=== PATIENT | female | born 1965 | race Caucasian/White ===

== ENCOUNTER 2018-06-19 17:42 | Emergency (ER) | payer BC ==
[~2018-06-19] VITALS: Ht 154.9 cm; Wt 62.1 kg
--- NOTE | 2018-06-19 17:49 | ED.ADGEN ---
Past History Past Medical History: Other Smoking: Cigarettes Adult General Chief Complaint Chief Complaint "... I was pushing a cart yesterday.... about 3:30 to 4:30.. at [facility]... it does not turn well....and while I was attempting to turn it... I felt a really sharp pain.. here in my Rt chest wall .. and both my shoulders hurt.. more here in the right...but the pain has not gotten better.. and now it really bad shoulder pain and in my Rt. chest area... its no better today and seems to getting worse... I tried to push the cart... today.. and I could nt. ." HPI HPI Patient is a 52 year old female who presents with above hx and complaints of of right shoulder pain with Rt. chest wall pain . Patient localizes pain under right shoulder and along the anterior axillary line approximately T6. Pain is reproduced with movement. Pain is reproducible cough and deep breaths. Pain to be localized to one or 2 cm area along the anterior axillary line. Anterior to posterior pressure on chest wall exacerbates pain and localizes to the anterior axillary line. Patient denies any other injury. Patient normally healthy. Patient does not follow-up primary care. Patient does smoke. Patient denies any history of cardiac disease or DVTs or blood clots. Patient denies any history of immunosuppression. Patient rates her pain 9 out of 10 if she attempts to push a cart and with anterior to posterior chest wall pressure. If not moving the pain is minimal. Review of Systems Review of Systems Constitutional: Denies fever or chills [] Eyes: Denies change in visual acuity, redness, or eye pain [] HENT: Denies nasal congestion or sore throat [] Respiratory: Denies cough or shortness of breath []complaints of localized chest wall pain Cardiovascular: No additional information not addressed in HPI [] GI: Denies abdominal pain, nausea, vomiting, bloody stools or diarrhea [] : Denies dysuria or hematuria [] Musculoskeletal: Denies back pain or joint pain []except as per history of present illness Integument: Denies rash or skin lesions [] Neurologic: Denies headache, focal weakness or sensory changes [] Endocrine: Denies polyuria or polydipsia [] All other systems were reviewed and found to be within normal limits, except as documented in this note. Family History Family History Noncontributory Current Medications Current Medications Current Medications Medications (Trade) Dose Ordered Sig/Tara Start Time Stop Time Status Last Admin Dose Admin Ketorolac Tromethamine (Toradol) 30 mg 1X ONCE 06/19/18 19:15 06/19/18 19:16 DC 06/19/18 19:20 30 MG Lactated Ringer's 1,000 ml @ 1,000 mls/hr Q1H 06/19/18 18:02 06/19/18 19:01 DC 06/19/18 18:15 1,000 MLS/HR Oxycodone/ Acetaminophen (Percocet 5/325) 2 tab 1X ONCE 06/19/18 19:15 06/19/18 19:16 DC 06/19/18 19:20 2 TAB Allergies Allergies Allergies Coded Allergies Type Severity Reaction Last Updated Verified No Known Drug Allergies 06/19/18 No Physical Exam Physical Exam Constitutional: Moderately acute distress, non-toxic appearance. [] HENT: Normocephalic, atraumatic, bilateral external ears normal, oropharynx moist, no oral exudates, nose normal. [] Eyes: PERRLA, EOMI, conjunctiva normal, no discharge. [] Glasses Neck: Normal range of motion, no tenderness, supple, no stridor. [] Cardiovascular:Heart rate regular rhythm, no murmur [] Lungs & Thorax: Bilateral breath sounds equal at apexes with scattered wheezes auscultation. Patient has [point tenderness right chest wall and under right arm as per history of present illness Abdomen: Bowel sounds normal, soft, no tenderness, no masses, no pulsatile masses. Old surgery scar Skin: Warm, dry, no erythema, no rash. [] Back: No tenderness, no CVA tenderness. [] Extremities: No tenderness, no cyanosis, no clubbing, ROM intact, right ankle edema. [] Except as noted in history of present illness. No cording in legs. Does have tenderness right chest wall and discomfort in both shoulders when she moves arms and wind mill rotation. Distal neurovascular intact. Neurologic: Alert and oriented X 3, normal motor function, normal sensory function, no focal deficits noted. [] Psychologic: Affect anxious, judgement normal, mood normal. [] Current Patient Data Vital Signs Vital Signs Date Time Temp Pulse Resp B/P (MAP) Pulse Ox O2 Delivery O2 Flow Rate FiO2 06/19/18 19:40 82 18 145/84 (104) 96 Room Air 06/19/18 17:54 98.6 Lab Results Laboratory Tests Test 06/19/18 18:00 06/19/18 18:43 White Blood Count 8.5 x10^3/uL (4.0-11.0) Red Blood Count 4.94 x10^6/uL (3.50-5.40) Hemoglobin 15.0 g/dL (12.0-15.5) Hematocrit 44.0 % (36.0-47.0) Mean Corpuscular Volume 89 fL (79-100) Mean Corpuscular Hemoglobin 30 pg (25-35) Mean Corpuscular Hemoglobin Concent 34 g/dL (31-37) Red Cell Distribution Width 14.4 % (11.5-14.5) Platelet Count 450 x10^3/uL (140-400) H Neutrophils (%) (Auto) 50 % (31-73) Lymphocytes (%) (Auto) 39 % (24-48) Monocytes (%) (Auto) 8 % (0-9) Eosinophils (%) (Auto) 1 % (0-3) Basophils (%) (Auto) 2 % (0-3) Neutrophils # (Auto) 4.3 x10^3uL (1.8-7.7) Lymphocytes # (Auto) 3.3 x10^3/uL (1.0-4.8) Monocytes # (Auto) 0.7 x10^3/uL (0.0-1.1) Eosinophils # (Auto) 0.1 x10^3/uL (0.0-0.7) Basophils # (Auto) 0.1 x10^3/uL (0.0-0.2) Sodium Level 139 mmol/L (136-145) Potassium Level 3.8 mmol/L (3.5-5.1) Chloride Level 103 mmol/L (98-107) Carbon Dioxide Level 27 mmol/L (21-32) Anion Gap 9 (6-14) Blood Urea Nitrogen 9 mg/dL (7-20) Creatinine 0.7 mg/dL (0.6-1.0) Estimated GFR (Cockcroft-Gault) 87.5 Glucose Level 90 mg/dL (70-99) Calcium Level 9.2 mg/dL (8.5-10.1) Magnesium Level 2.1 mg/dL (1.8-2.4) Total Bilirubin 0.3 mg/dL (0.2-1.0) Direct Bilirubin 0.1 mg/dL (0.0-0.2) Aspartate Amino Transferase (AST) 15 U/L (15-37) Alanine Aminotransferase (ALT) 19 U/L (14-59) Alkaline Phosphatase 86 U/L (46-116) Creatine Kinase 70 U/L (26-192) Creatine Kinase MB (Mass) 0.7 ng/mL (0.0-3.6) Creatine Kinase MB Relative Index 1.0 % (0-4) Troponin I Quantitative < 0.017 ng/mL (0-0.055) GB-Atd-J-Type Natriuretic Peptide 157 pg/mL (0-124) H Total Protein 7.7 g/dL (6.4-8.2) Albumin 3.4 g/dL (3.4-5.0) Lipase 74 U/L (73-393) Urine Opiates Screen Neg (NEG) Urine Methadone Screen Neg (NEG) Urine Barbiturates Neg (NEG) Urine Phencyclidine Screen Neg (NEG) Urine Amphetamine/Methamphetamine Neg (NEG) Urine Benzodiazepines Screen Neg (NEG) Urine Cocaine Screen Neg (NEG) Urine Cannabinoids Screen Neg (NEG) Urine Ethyl Alcohol Neg (NEG) EKG EKG My interpretation of EKG shows a sinus rhythm at 90 bpm. No acute morphology[] Radiology/Procedures Radiology/Procedures My interpretation of chest x-ray, shoulders- shows no acute cardiopulmonary findings. Does have some atelectasis. Normal cardiac border. Does have clips in right upper abdomen area. Does have increased stool. Does have some mild degenerative changes of spine and shoulders[]. Course & Med Decision Making Course & Med Decision Making Pertinent Labs and Imaging studies reviewed. (See chart for details) Ice packs when necessary. Continue take deep breaths. Do not splint chest wall [place] wrap. Take Tylenol and ibuprofen for pain. For marked pain may take Vicoprofen. No work until follow-up work comp or released by primary care. See work comp has noticed possible. Return if any concerns. Patient encouraged to stop smoking. Patient did take a daily aspirin. Return if any concerns. [] Final Impression Final Impression 1. Rt. shoulder pain 2. Chest Pain- Rt chest wall pain 3. Tobacco Use[] 4. History of prior right ankle injury-on light duty Dragon Disclaimer Dragon Disclaimer This electronic medical record was generated, in whole or in part, using a voice recognition dictation system. KEVIN SANTANA MD Jun 19, 2018 17:49
[2018-06-19] MEDS ORDERED: IV RINGERS SOLUTION,LACTATED 1,000 ML IV SCH (18:02)
[2018-06-19 18:40] LABS: BASO # 0.1 x10^3/uL (0.0-0.2); BASO % 2 % (0-3); EOS # 0.1 x10^3/uL (0.0-0.7); EOS % 1 % (0-3); LYMPH # 3.3 x10^3/uL (1.0-4.8); LYMPH % 39 % (24-48); MEAN CORPUSCULAR HEMOGLOBIN 30 pg (25-35); MEAN CORPUSCULAR HGB CONC 34 g/dL (31-37); MEAN CORPUSCULAR VOLUME 89 fL (79-100); MONO # 0.7 x10^3/uL (0.0-1.1); MONO % 8 % (0-9); NEUT # 4.3 x10^3uL (1.8-7.7); NEUT % 50 % (31-73); PLATELET COUNT 450 x10^3/uL (140-400); RED BLOOD COUNT 4.94 x10^6/uL (3.50-5.40); RED CELL DISTRIBUTION WIDTH 14.4 % (11.5-14.5); WHITE BLOOD COUNT 8.5 x10^3/uL (4.0-11.0)
[2018-06-19] MEDS ORDERED: KETOROLAC 30 MG/ML VIAL. IV ONE (19:15)
[2018-06-19] MEDS ORDERED: oxyCODONE/APAP 5/325 1 TAB TABLET PO ONE (19:15)
[2018-06-19 19:22] LABS: ALBUMIN 3.4 g/dL (3.4-5.0); CALCIUM 9.2 mg/dL (8.5-10.1); CREATININE 0.7 mg/dL (0.6-1.0); DIRECT BILIRUBIN 0.1 mg/dL (0.0-0.2); GFR 87.5; MAGNESIUM 2.1 mg/dL (1.8-2.4); POTASSIUM 3.8 mmol/L (3.5-5.1); TOTAL BILIRUBIN 0.3 mg/dL (0.2-1.0); TOTAL PROTEIN 7.7 g/dL (6.4-8.2)
[2018-06-19 19:34] LABS: AMPHETAMINE/METHAMPHETAMINE NEG (NEG); BARBITURATES NEG (NEG); BENZODIAZEPINES NEG (NEG); CANNABINOIDS NEG (NEG); COCAINE NEG (NEG); METHADONE NEG (NEG); OPIATES NEG (NEG); PHENCYCLIDINE NEG (NEG)
[2018-06-19] MEDS ORDERED: HYDR-79 PO (19:36)
[2018-06-19 19:40] VITALS: BP 145/84
[2018-06-19 19:54] LABS: BILIRUBIN,URINE NEG (NEG); CLARITY,URINE HAZY; COLOR,URINE STRAW; GLUCOSE,URINE NEG (NEG)
[2018-06-19 19:55] LABS: BACTERIA,URINE FEW /HPF (0-FEW); NITRITE,URINE NEG (NEG); RBC,URINE OCC /HPF (0-2); SQUAMOUS EPITHELIAL CELL,UR MANY /LPF; UROBILINOGEN,URINE 0.2 mg/dL (0.2 mg/dL)
--- NOTE | 2018-06-20 09:01 | RAD ---
EXAM: Bilateral shoulders, 6 views. HISTORY: Pain. COMPARISON: None. FINDINGS: 3 views of both shoulders are obtained. There is no fracture, dislocation or subluxation. The acromioclavicular and glenohumeral joint spaces are intact. IMPRESSION: No acute osseous finding. Electronically signed by: Mary Rivas MD (06/20/2018 8:58 AM) [facility]
--- NOTE | 2018-06-20 09:02 | RAD ---
EXAM: Chest, 2 views. HISTORY: Chest pain. COMPARISON: None. FINDINGS: Frontal and lateral views of the chest are obtained. There is bilateral basilar atelectasis. There may be a trace right pleural effusion. There is no pneumothorax. The heart is normal in size. IMPRESSION: Bilateral basilar atelectasis with possible trace right pleural effusion. Electronically signed by: Mary Rivas MD (06/20/2018 8:59 AM) [place] [id number]
--- NOTE | 2018-06-20 09:06 | EKG ---
[address] [address] Test Date: 2018-06-19 Test Time: 18:18:07 Pat Name: SEAMUS GUADALUPE Department: Room: Gender: F [employer]: : 1965 Requested By: KEVIN SANTANA Order Number: [id number] Reading MD: Measurements Intervals Strang Rate: 90 P: 34 WV: 128 QRS: 23 QRSD: 72 T: 18 QT: 350 QTc: 432 Interpretive Statements SINUS RHYTHM NORMAL ECG RI6.01 Unconfirmed report No previous ECG available for comparison
== END 2018-06-19 19:42 | disposition home or self-care (01) ==
LOC: ER 17:42
DX: R07.89 Other chest pain (principal); M25.511 Pain in right shoulder; M25.512 Pain in left shoulder; F17.210 Nicotine dependence, cigarettes, uncomplicated; X50.0XXA Overexertion from strenuous movement or load, initial encounter; Y93.89 Activity, other specified; Y92.89 Other specified places as the place of occurrence of the external cause; Y99.8 Other external cause status
CPT/HCPCS: 36415; 71046; 73030; 80048; 80076; 80307; 81001; 82553; 83690; 83735; 83880; 84443; 84484; 85025; 85379; 85610; 85730; 87086; 93005; 96374; 99285; J1885; J7120; G0479